=== PATIENT | female | born 1945 | race Caucasian/White ===

== ENCOUNTER 2016-11-15 20:38 | Observation (INO) ==
[2016-11-15] MEDS ORDERED: ANTIVERT PO ONE (21:18)
[2016-11-15] MEDS ORDERED: DECADRON IV ONE (21:18)
[2016-11-15 21:29] LABS: MANUAL DIFF NEEDED? NO
[2016-11-15 21:32] LABS: BASO% 0.4 % (0.0-0.8); EOS# 0.45 X1000 (0.0-0.7); EOS% 4.9 % (0.0-10.0); HEMATOCRIT 39.5 % (37.0-47.0); HEMOGLOBIN 13.8 g/dL (12.0-16.0); IMM GRAN# 0.02 X1000 (0.0-0.04); IMM GRAN% 0.2 % (0.0-0.5); LYMPH# 3.38 X1000 (1.2-3.4); LYMPH% 36.9 % (20.5-51.1); MCH 30.6 PG (27-31); MCHC 34.9 g/dL (33-37); MCV 87.6 FL (81-99); MONO# 0.91 X1000 (0.11-0.59); MONO% 9.9 % (1.7-9.3); MPV 10.1 FL (7.4-10.4); NEUT% 47.7 % (42.2-75.2); PLT 237 X1000 (130-400); RBC 4.51 XMIL (4.2-5.4)
[2016-11-15 21:40] LABS: INR 0.99; PROTIME 10.4 Seconds (9.2-11.7); PTT 27.2 Seconds (22.0-36.0)
--- NOTE | 2016-11-15 21:50 | Diag Imaging Result Doc PS360 ---
EXAM: HEAD W/O CONTRAST INDICATION: ALTERED SENSATION, ALTERED COORDINATION COMPARISON: None. FINDINGS: There is no definite acute infarct given the limited sensitivity of CT versus MRI. There is no discrete intracranial mass, mass effect, or intracranial hemorrhage. The surrounding soft tissues and bony structures are essentially unremarkable. IMPRESSION: No evidence of acute intracranial pathology. Electronically signed by Eulalio Leyva 11/15/2016 9:48 PM
[2016-11-15 21:53] LABS: AGAP 14; ALBUMIN 4.2 g/dL (3.5-5.0); ALKALINE PHOSPHATASE 67 U/L (32-104); BUN 16 mg/dL (8-22); CALCIUM 9.3 mg/dL (8.8-10.2); CHLORIDE 100 mmol/L (98-107); CK PROFILE 50 U/L (24-173); COSMO 282; GOT 19 U/L (10-30); GPT 14 U/L (10-36); SODIUM 140 mmol/L (136-145); TCO2 26 mmol/L (25-35); TOTAL BILIRUBIN 0.31 mg/dL (0.20-1.00); TOTAL PROTEIN 7.1 g/dL (6.3-8.3)
--- NOTE | 2016-11-15 23:05 | PROVIDER DOCUMENTATION ---
HPI-General Adult - General Chief Complaint: B/P Problems Stated Complaint: HIGH B/P Time Seen by Provider: 11/15/16 20:51 Source: patient, family Allergies/Adverse Reactions: Patient Allergies Allergy/AdvReac Type Severity Reaction Status Date / Time No Known Allergies Allergy Verified 08/04/13 08:16 Home Medications: Home Medication List Medication Instructions Recorded Confirmed Last Taken Type Aspirin [Aspirin EC] 81 mg PO DAILY 11/16/16 11/16/16 11/15/16 21:00 History Losartan Potassium 100 mg PO QAM 11/16/16 11/16/16 11/15/16 07:00 History Metformin HCl [Metformin HCl ER] 500 mg PO QAM 11/16/16 11/16/16 11/15/16 09:00 History - History of Present Illness -Gen Adult Nature of Presenting Problems: Pt is a 71 y/o F c chief complaint of dizziness x 24 hours. Pt states she has had a feeling of fluid in her ears. She feels that the room is spinning when she closes her eyes but it is improved when her eyes are open. Pt states she has felt that her coordination is affected. She denies headache, neuro focal weakness, slurred speech. Pt denies h/o stroke although does have a h/o seizures. Review of Systems - Adult - REVIEW OF SYSTEMS - ADULT Constitutional: reports: no symptoms reported. denies: chills, fatique Eyes: reports: no symptoms reported. denies: blurred vision, double vision Ears, Nose, Mouth & Throat: reports: hearing loss, other. denies: ear pain, nose pain, hoarseness Cardiovascular: reports: no symptoms reported. denies: chest pain, orthopnea Respiratory: reports: no symptoms reported. denies: cough, shortness of breath Gastrointestinal: reports: no symptoms reported. denies: abdominal pain, nausea Genitourinary: reports: no symptoms reported. denies: dysuria, hematuria Musculoskeletal: reports: no symptoms reported. denies: joint pain, joint swelling Integumentary: reports: no symptoms reported. denies: itching, rash Neurological: reports: dizziness/vertigo. denies: numbness, paresthesia Psychiatric: reports: no symptoms reported. denies: anxiety, emotional problems Endocrine: reports: no symptoms reported. denies: cold intolerance, heat intolerance Hematologic/Lymphatic: reports: no symptoms reported. denies: blood clots, low blood count Allergic/Immunologic: reports: no symptoms reported. denies: allergic reactions , eczema All Other Systems: Reviewed and Negative Past History - Adult - PAST MEDICAL HISTORY-ADULT Review of Records: reports: Old Records Reviewed, Nursing Assessment Review, Medications Reviewed, Social history reviewed & non-contributory. Major Childhood Illnesses: reports: denies history Cardiovascular: reports: denies history Respiratory: reports: denies history Gastrointestinal: reports: denies history Obstetrical/Gynecological: reports: denies history Genitourinary: reports: denies history Musculoskeletal: reports: denies history Neurological: reports: Seizures/Epilepsy Endocrine/Immune: reports: denies history Other Conditions: reports: skin disorder (Melanoma) - IMMUNIZATION STATUS Childhood Immunizations: See Nurse Assessment Flu Vaccine: See Nurse Assessment - FAMILY HISTORY Family History: reviewed, not pertinent - SOCIAL HISTORY Smoking: denies Substance Use: none/never Alcohol Use Frequency: never Living Situation: family Physical Exam-General - PHYSICAL EXAM-ADULT Initial Vital Signs Reviewed: Yes - CONSTITUTIONAL General Appearance: appears well, alert, no apparent distress - EYES Eyes: PERRL/EOMI, pink conjunctivae - HEAD, EARS, NOSE, MOUTH & THROAT HENMT: TM abnormal (fluid behind TM) - NECK Neck: normal inspection - RESPIRATORY Respiratory: chest non-tender, lungs clear, normal breath sounds - CARDIOVASCULAR Cardiovascular: normal peripheral pulses, regular rate, rhythm - GASTROINTESTINAL (ABDOMEN) Abdominal Exam: normal bowel sounds, non tender, soft - LYMPHATIC Lymphatic: no adenopathy - MUSCULOSKELETAL Back Exam: normal inspection, no CVA tenderness, no vertebral tenderness Extremity: normal range of motion, non-tender, normal inspection - SKIN Integumentary: normal color, normal turgor, warm/dry - NEUROLOGIC Neurologic: grossly normal, no motor/sensory deficits - PSYCHIATRIC Psych/Mental Status: normal mood/affect, normal thought content, normal thought process, oriented x 3 Progress - PLAN OF CARE/RESULTS Progress/Plan/Lab Results: Vital Signs - 8 hr 11/15/16 20:41 Temperature 98.1 F Pulse Rate 83 Respiratory Rate 18 Blood Pressure 162/79 O2 Sat by Pulse Oximetry 99 Laboratory Results - last 24 hr 11/15/16 11/15/16 11/15/16 21:22 21:22 21:22 WBC 9.16 RBC 4.51 Hgb 13.8 Hct 39.5 MCV 87.6 MCH 30.6 MCHC 34.9 RDW Std Deviation 13.3 Plt Count 237 MPV 10.1 Immature Gran % (Auto) 0.2 Neut % (Auto) 47.7 Lymph % (Auto) 36.9 Antelope % (Auto) 9.9 H Eos % (Auto) 4.9 Baso % (Auto) 0.4 Immature Gran # (Auto) 0.02 Neut # (Auto) 4.36 Lymph # (Auto) 3.38 Antelope # (Auto) 0.91 H Eos # (Auto) 0.45 Baso # (Auto) 0.04 PT INR PTT (Actin FS) Sodium 140 Potassium 4.0 Chloride 100 Carbon Dioxide 26 Anion Gap 14 BUN 16 Creatinine 0.7 Estimated GFR/1.73 m2 > 60 BUN/Creatinine Ratio 23 Glucose 120 H Calculated Osmolality 282 Calcium 9.3 Total Bilirubin 0.31 AST 19 ALT 14 Alkaline Phosphatase 67 Creatine Kinase 50 Troponin T Total Protein 7.1 Albumin 4.2 Globulin 2.9 Albumin/Globulin Ratio 1.4 Plasma/Serum Ethyl Alc 11/15/16 11/15/16 21:22 21:22 WBC RBC Hgb Hct MCV MCH MCHC RDW Std Deviation Plt Count MPV Immature Gran % (Auto) Neut % (Auto) Lymph % (Auto) Antelope % (Auto) Eos % (Auto) Baso % (Auto) Immature Gran # (Auto) Neut # (Auto) Lymph # (Auto) Antelope # (Auto) Eos # (Auto) Baso # (Auto) PT 10.4 INR 0.99 PTT (Actin FS) 27.2 Sodium Potassium Chloride Carbon Dioxide Anion Gap BUN Creatinine Estimated GFR/1.73 m2 BUN/Creatinine Ratio Glucose Calculated Osmolality Calcium Total Bilirubin AST ALT Alkaline Phosphatase Creatine Kinase Troponin T < 0.010 Total Protein Albumin Globulin Albumin/Globulin Ratio Plasma/Serum Ethyl Alc Orders Category Date Time Status CHEST-PORTABLE [RAD] Stat Exams 11/15/16 22:15 Taken HEAD W/O CONTRAST [CT] Stat Exams 11/15/16 21:19 Completed ALCOHOL BLOOD Stat Lab 11/15/16 21:22 Completed CBC WITH ELECTRONIC DIFF [HEME] Stat Lab 11/15/16 21:22 Completed CK PROFILE [SP CHEM] Stat Lab 11/15/16 21:22 Completed COMPREHENSIVE METABOLIC PANEL [CHEM] Stat Lab 11/15/16 21:22 Completed PROTIME WITH INR [COAG] Stat Lab 11/15/16 21:22 Completed PTT [COAG] Stat Lab 11/15/16 21:22 Completed TROPONIN T Stat Lab 11/15/16 21:22 Completed URINALYSIS W/POSS RFLX CULT-1 [URINALYSIS] Stat Lab 11/15/16 20:52 Uncollected URINE DRUG SCREEN Stat Lab 11/15/16 20:52 Uncollected Dexamethasone [Decadron] Med 11/15/16 21:18 Discontinued 10 mg IV NOW ONE Meclizine [Antivert] Med 11/15/16 21:18 Discontinued 25 mg PO NOW ONE EKG [EKG] Stat Ther 11/15/16 20:52 Ordered Result Diagrams: 11/15/16 21:22 11/15/16 21:22 - REASSESSMENT Reassessment #1 Time Reassessed: 00:06 (Dr. Styles (ER MD) at bedside. Examined pt. Recommended admit for observation.) - XRAY 1 XRAY Study: Chest Impression: Normal XRAY Interpretation: nad - CT/MRI 1 CT Study: Head Impression: Normal (No evidence of acute intracranial pathology.- Dr. Leyva) - CONSULTS/PCP/HOSPITALIST Notification #1 *Consult/PCP/Hospitalist*: Dr. Rodriguez (Hospitalist) Time Discussed: 00:07 Reason/Comments: Will see pt in the ER. Departure - Departure Date of Disposition Decision: 11/16/16 Time of Disposition Decision: 00:06 DIAGNOSIS: Vertigo Disposition: ADMITTED INPATIENT 09 Certified Medical Emergency: Emergent Condition: Stable Referrals and Follow-Ups: Radha Bowen MD [Primary Care Provider] - - Critical Care Note This patient required my direct & personal management of CC.: No Attestation - Physician/ MEREDITH Attestation Patient care was provided by Advanced Practice Provider:: Yes Advanced Practice Provider:: Eulalio Zapien Advanced Practice Provider documentation review:: The Mid-level provider documentation, treatment plan and medical decision making was reviewed by the physician who agrees with all treatment and medical decision making by the MLP.
[2016-11-15 23:32] LABS: BILIRUBIN URINE NEGATIVE (NEGATIVE); BLOOD URINE NEGATIVE (NEGATIVE); COLOR STRAW; GLUCOSE URINE NEGATIVE (NEGATIVE); LEUKOCYTES URINE NEGATIVE (NEGATIVE); NITRITE URINE NEGATIVE (NEGATIVE); PROTEIN URINE NEGATIVE (NEGATIVE); SP GRAVITY URINE 1.006; TURBIDITY URINE CLEAR (CLEAR); URINE CULTURE NEEDED? NO; URINE MICRO REVIEW NEEDED? NO; URINE SOURCE CLEAN CATCH; UROBILINOGEN URINE NORMAL (NORMAL)
[2016-11-15 23:33] LABS: UR EPITHELIAL CELLS <10 /HPF (<10); URINE BACTERIA NEGATIVE /HPF; URINE RBC <10 /HPF (<10); URINE WBC <10 /HPF (<10)
[2016-11-15 23:43] LABS: UR AMPHETAMINES QUAL NONE DETECTED (NONE DETECT); UR BARBITUATES QUAL NONE DETECTED (NONE DETECT); UR BENZODIAZEPIN QUAL NONE DETECTED (NONE DETECT); UR CANNABINOIDS QUAL NONE DETECTED (NONE DETECT); UR COCAINE QUAL NONE DETECTED (NONE DETECT); UR METHADONE QUAL NONE DETECTED (NONE DETECT); UR OPIATES QUAL NONE DETECTED (NONE DETECT); UR OXYCODONE QUAL NONE DETECTED (NONE DETECT); UR PCP QUAL NONE DETECTED (NONE DETECT)
[2016-11-16] MEDS ORDERED: ANTIVERT PO PRN (01:28)
[2016-11-16] MEDS ORDERED: ZOFRAN IV PRN (01:28)
[2016-11-16] MEDS ORDERED: NS 1,000 ML IV SCH (01:28)
--- NOTE | 2016-11-16 02:51 | HISTORY AND PHYSICAL ---
PRIMARY CARE PHYSICIAN: Dr. Bowen. CHIEF COMPLAINT: Dizziness. HISTORY OF PRESENTING ILLNESS: A 71-year-old female with a history of hypertension and diabetes mellitus type 2 who had presented to the emergency department with complaint of having dizziness- like sensation that started about a day ago. She states that she was unsteady while she was walking. Symptoms seemed to be worsening. Subsequently, she had come to the emergency department. She admitted to having some left hearing loss more than usual also and stated that she was somewhat nauseated. It was more positional when she moved her head. She was evaluated in the ER and due to her presenting symptoms, it was thought that we would place her for observation for further evaluation and management. At the time of my examination, she denied any fever, chills, chest pain, shortness of breath, hemoptysis, melena or weight changes but complained of dizziness and some nausea. PAST MEDICAL HISTORY: Hypertension, diabetes mellitus type 2, melanoma, seizures. PAST SURGICAL HISTORY: Bilateral eye surgery, hysterectomy. ALLERGIES: No known drug allergies. CURRENT MEDICATIONS: As listed in the MAR. SOCIAL HISTORY: She denies any history of smoking, alcohol or illicit drug use. FAMILY HISTORY: No history of coronary artery disease. REVIEW OF SYSTEMS: Twelve point review of systems as in HPI. Other systems negative. PHYSICAL EXAMINATION: GENERAL: Cooperative, friendly elderly female. She is resting comfortably now. VITAL SIGNS: Temperature 98.1 degrees, pulse 83, respiration 18, blood pressure 160/79. She is saturating 99%. HEENT: Atraumatic, normocephalic. Extraocular movements intact. PERRLA. NECK: Supple. CHEST: Clear to auscultation. CARDIOVASCULAR: Regular rate and rhythm. ABDOMEN: Soft. Positive bowel sounds. EXTREMITIES: No edema. NEUROLOGIC: She is awake, alert, oriented x3. GENITOURINARY: No bladder distention. SKIN: Warm. LABORATORIES AND STUDIES: WBCs 9.16, hemoglobin 13.8, hematocrit 39.5, platelets 237,000. Sodium 140, potassium 4.0, chloride 100, CO2 of 26, BUN is 16, creatinine 0.7, glucose is 120. ASSESSMENT: A 71-year-old female with a history of hypertension, diabetes mellitus type 2, who presented to emergency department with 1-day history of having dizziness. We will place patient for observation for further evaluation management assessment. 1. Dizziness, suspected benign positional vertigo versus labyrinthitis. 2. Hypertension. 3. Diabetes mellitus type 2. PLAN: 1. We will admit patient to medical floor with telemetry. 2. Continue with neuro checks. 3. We will monitor blood pressure closely. Resume antihypertensive agent. 4. We will put patient on sliding scale insulin regimen. Monitor blood glucose. 5. Put patient on DVT prophylaxis with SCD. 6. We will continue to follow and reassess. cc: Juan Antonio Rodriguez MD
[2016-11-16] MEDS: HUMULIN R SUBQ SCH ×4 (06:29→22:08)
[2016-11-16] MEDS: COZAAR PO SCH (09:13)
[2016-11-16] MEDS: ASPIRIN EC PO SCH (09:13)
--- NOTE | 2016-11-16 11:11 | Diag Imaging Result Doc PS360 ---
EXAM: CHEST-PORTABLE INDICATION: altered sensation TECHNIQUE: One view COMPARISON: None. FINDINGS: There are a couple calcified granulomata in the left midlung zone as well as the right upper lung zone. The lungs are grossly clear, otherwise. There is no discrete pleural fluid collection or pneumothorax. The cardiomediastinal silhouette and central vasculature are grossly unremarkable. IMPRESSION: No evidence of acute pathology by plain radiograph. Electronically signed by Eulalio Leyva 11/16/2016 11:09 AM
--- NOTE | 2016-11-16 14:35 | ECHO REPORT ---
ORDER DATE: 11/16/2016 INDICATIONS FOR THE STUDY: Syncope, dizziness. FINDINGS: 1. Right atrium is normal size at 3.3 cm. 2. Trace tricuspid regurgitation. RV systolic pressure of 30. 3. Normal RV size and systolic function. 4. Trace pulmonic insufficiency. 5. Normal left atrial size at 3.9 cm. 6. No mitral prolapse. Trace mitral regurgitation. 7. Normal LV size, end-diastolic dimension of 4.1. Normal wall thicknesses with a posterior and interventricular septal wall thickness of 1.1 cm each. Normal LV systolic function. Calculated EF of 68% with normal wall motion. 8. Aortic valve opens well. It is trileaflet. No evidence of stenosis or insufficiency. 9. Aorta appears normal in visualized segments. 10. No pericardial effusion seen. cc: MD Juan Antonio Borja MD Adnan A. Seljuki, MD
[2016-11-16] MEDS ORDERED: NORVASC PO ONE (15:51)
[2016-11-17] MEDS: HUMULIN R SUBQ SCH ×2 (06:31→10:57)
[2016-11-17 06:49] LABS: MANUAL DIFF NEEDED? NO
[2016-11-17 06:54] LABS: BASO% 0.1 % (0.0-0.8); EOS# 0.05 X1000 (0.0-0.7); EOS% 0.3 % (0.0-10.0); HEMATOCRIT 39.6 % (37.0-47.0); HEMOGLOBIN 13.5 g/dL (12.0-16.0); IMM GRAN# 0.03 X1000 (0.0-0.04); IMM GRAN% 0.2 % (0.0-0.5); LYMPH# 3.16 X1000 (1.2-3.4); LYMPH% 19.4 % (20.5-51.1); MCH 30.1 PG (27-31); MCHC 34.1 g/dL (33-37); MCV 88.4 FL (81-99); MONO# 1.35 X1000 (0.11-0.59); MONO% 8.3 % (1.7-9.3); MPV 10.6 FL (7.4-10.4); NEUT% 71.7 % (42.2-75.2); PLT 250 X1000 (130-400); RBC 4.48 XMIL (4.2-5.4)
[2016-11-17 07:11] LABS: AGAP 11; BUN 17 mg/dL (8-22); CHLORIDE 105 mmol/L (98-107); COSMO 287; POTASSIUM 4.1 mmol/L (3.5-5.1); SODIUM 142 mmol/L (136-145); TCO2 26 mmol/L (25-35)
[2016-11-17] MEDS: COZAAR PO SCH (08:38)
[2016-11-17] MEDS: ASPIRIN EC PO SCH (08:38)
[2016-11-17] MEDS ORDERED: NORVASC PO SCH (09:00)
[2016-11-17 13:44] VITALS: BP 142/65
--- NOTE | 2016-11-17 22:39 | DISCHARGE SUMMARY ---
ADMISSION DATE: 11/16/2016 DISCHARGE DATE: 11/17/2016 DISCHARGE DIAGNOSES: 1. Vertigo 2. Uncontrolled hypertension. 3. Type 2 diabetes mellitus. HISTORY OF PRESENT ILLNESS: Ms. Pettit is a 71-year-old female who was admitted to the hospital for observation after she presented to the emergency department with complaint of having dizziness associated with uncontrolled hypertension. She was diagnosed as having benign positional vertigo and was admitted to the hospital to rule out any cerebrovascular event. Her condition has improved after she took meclizine. She did have an echocardiogram that was unremarkable. She was taking losartan 100 mg orally once daily as outpatient for her blood pressure which was continued at the hospital, and she was also given amlodipine 2.5 mg daily with which her blood pressure improved. Since her condition has improved, she is going to be discharged home today. DISCHARGE MEDICATIONS: 1. Meclizine 12.5 mg orally 3 times a day as needed for dizziness. 2. Losartan 100 mg orally once daily. 3. Amlodipine to 2.5 mg orally once daily. 4. Aspirin 81 mg orally once daily. 5. Metformin ER 500 mg orally once daily. FOLLOWUP: She will follow up with me at the office in approximately 1 week. CONDITION: Stable. DISPOSITION: Home. cc: Radha Bowen MD
--- NOTE | 2016-11-18 07:12 | EKG Report ---
Test Performed on : 11/15/2016 9:00:28 PM Test Reason : ALTERED SENSATION Blood Pressure : / mmHG Vent. Rate : 083 BPM Atrial Rate : 083 BPM P-R Int : 126 ms QRS Dur : 076 ms QT Int : 354 ms P-R-T Axes : 058 071 067 degrees QTc Int : 415 ms Normal sinus rhythm. Nonspecific ST abnormality Abnormal ECG When compared with ECG of 07-JAN-2008 12:43, No significant change was found Unconfirmed Result
== END 2016-11-17 14:53 | disposition home or self-care (01) ==
LOC: ED 20:38 → 3N 20:38 → SUATTDRO 11-16 00:47 → 3N 11-16 01:21
PROVIDERS: ADMIT Internal Medicine; ATTEND Internal Medicine